=== PATIENT | male | born 1980 | race Caucasian/White ===

== ENCOUNTER 2022-05-18 22:42 | Emergency (ER) | payer SELFPAY ==
[~2022-05-18] VITALS: Ht 162.6 cm; Wt 90.0 kg
[2022-05-18 23:11] VITALS: BP 133/81
== END 2022-05-19 00:01 | disposition left against medical advice (07) ==
LOC: ER 22:42
DX: Z53.21 Procedure and treatment not carried out due to patient leaving prior to being seen by health care provider (principal)